=== PATIENT | female | born 2000 ===

== ENCOUNTER 2021-04-21 09:58 | Outpatient (CLI) | payer OTHER | END 2021-04-21 11:28 | disposition home or self-care (01) | LOC: PRENATAL 09:58 | PROVIDERS: ATTEND Obstetrics & Gynecology Maternal & Fetal Medicine | DX: O30.92 Multiple gestation, unspecified, second trimester (principal); O36.80X2 Pregnancy with inconclusive fetal viability, fetus 2; Z36.89 Encounter for other specified antenatal screening; Z3A.14 14 weeks gestation of pregnancy ==

== ENCOUNTER 2021-06-03 12:44 | Outpatient (CLI) | payer OTHER | END 2021-06-03 15:50 | disposition home or self-care (01) | LOC: PRENATAL 12:44 | PROVIDERS: ATTEND Obstetrics & Gynecology Maternal & Fetal Medicine | DX: O26.852 Spotting complicating pregnancy, second trimester (principal); O36.80X2 Pregnancy with inconclusive fetal viability, fetus 2; O35.3XX2 Maternal care for (suspected) damage to fetus from viral disease in mother, fetus 2; O35.0XX2 Maternal care for (suspected) central nervous system malformation in fetus, fetus 2; Z36.89 Encounter for other specified antenatal screening; Z3A.20 20 weeks gestation of pregnancy ==

== ENCOUNTER 2021-06-29 07:57 | Outpatient (CLI) | payer OTHER | END 2021-06-29 09:10 | disposition home or self-care (01) | LOC: PRENATAL 07:57 | PROVIDERS: ATTEND Obstetrics & Gynecology Maternal & Fetal Medicine | DX: O26.842 Uterine size-date discrepancy, second trimester (principal); O99.212 Obesity complicating pregnancy, second trimester; O26.852 Spotting complicating pregnancy, second trimester; Z36.89 Encounter for other specified antenatal screening; Z3A.24 24 weeks gestation of pregnancy ==

== ENCOUNTER 2021-07-27 08:16 | Outpatient (CLI) | payer OTHER | END 2021-07-27 09:20 | disposition home or self-care (01) | LOC: PRENATAL 08:16 | PROVIDERS: ATTEND Obstetrics & Gynecology Maternal & Fetal Medicine | DX: O26.849 Uterine size-date discrepancy, unspecified trimester (principal); O99.210 Obesity complicating pregnancy, unspecified trimester; O30.90 Multiple gestation, unspecified, unspecified trimester ==

== ENCOUNTER 2021-08-24 07:54 | Outpatient (CLI) | payer OTHER | END 2021-08-24 09:30 | disposition home or self-care (01) | LOC: PRENATAL 07:54 | PROVIDERS: ATTEND Obstetrics & Gynecology Maternal & Fetal Medicine | DX: O30.033 Twin pregnancy, monochorionic/diamniotic, third trimester (principal); O26.849 Uterine size-date discrepancy, unspecified trimester; O30.90 Multiple gestation, unspecified, unspecified trimester; O99.210 Obesity complicating pregnancy, unspecified trimester ==

== ENCOUNTER 2021-09-30 07:35 | Inpatient (IN) | payer OTHER ==
[~2021-09-30] VITALS: Ht 167.6 cm; Wt 2.3 kg
[2021-09-30] MEDS ORDERED: PRENATAL TABLE1 EAC1 PO (08:44)
[2021-09-30] MEDS ORDERED: ADULT ASPIRIN81 MG (11:47)
[2021-10-03] MEDS ORDERED: IBUPROFEN600 MG PO (10:05)
[2021-10-03] MEDS ORDERED: SIMETHICONE125 M1 PO (10:06)
[2021-10-03] MEDS ORDERED: DOCUSATE SODIU100 MG PO (10:06)
== END 2021-10-03 14:51 | disposition home or self-care (01) | DRG 788 ==
LOC: OB/GYN 07:35 → LDR 07:35 → O/R 09:35 → OB/GYN 11:04
PROVIDERS: ADMIT Obstetrics & Gynecology; ATTEND Obstetrics & Gynecology
PROC: 4A1HXCZ Monitoring of Products of Conception, Cardiac Rate, External Approach (ICD-10-PCS; 2021-09-30)
PROC: 10D00Z1 Extraction of Products of Conception, Low, Open Approach (ICD-10-PCS; principal; 2021-09-30 10:45)
DX: O32.8XX1 Maternal care for other malpresentation of fetus, fetus 1 (principal); O30.093 Twin pregnancy, unable to determine number of placenta and number of amniotic sacs, third trimester; Z3A.37 37 weeks gestation of pregnancy; Z37.2 Twins, both liveborn; Z20.822 Contact with and (suspected) exposure to COVID-19